=== PATIENT | male | born 1935 | race Caucasian/White ===

== ENCOUNTER → 2017-02-19 | Outpatient (CLI) | payer MEDICARE ==
[~2017-02-19] MED LIST: GLIP5POW PO; HYDR-3307 PO; METF500T4 PO
== END | disposition home or self-care (01) ==
LOC: CFH 15:15
PROVIDERS: ATTEND Physician Assistant
DX: I08.3 Combined rheumatic disorders of mitral, aortic and tricuspid valves (principal); I37.1 Nonrheumatic pulmonary valve insufficiency; I51.7 Cardiomegaly; E11.9 Type 2 diabetes mellitus without complications; C44.91 Basal cell carcinoma of skin, unspecified
CPT/HCPCS: 93306

== ENCOUNTER → 2017-11-19 | Outpatient (CLI) | payer MEDICARE | END | disposition home or self-care (01) | LOC: CVU 07:33 | PROVIDERS: ATTEND Internal Medicine Cardiovascular Disease | DX: I70.203 Unspecified atherosclerosis of native arteries of extremities, bilateral legs (principal); I70.0 Atherosclerosis of aorta; I35.8 Other nonrheumatic aortic valve disorders; E11.9 Type 2 diabetes mellitus without complications; I51.7 Cardiomegaly; M25.551 Pain in right hip; M25.552 Pain in left hip | CPT/HCPCS: 93306; 93978 ==

== ENCOUNTER → 2017-11-20 | Outpatient (CLI) | payer MEDICARE ==
[~2017-11-20] MED LIST changes: +REGADENOSON 0.4 MG/5 ML SYRINGE ONE
== END | disposition home or self-care (01) ==
LOC: RAD 12:07
PROVIDERS: ATTEND Internal Medicine Cardiovascular Disease
DX: I71.9 Aortic aneurysm of unspecified site, without rupture (principal); R07.89 Other chest pain; R94.31 Abnormal electrocardiogram [ECG] [EKG]
CPT/HCPCS: 78452; 93017; A9502; J2785